=== PATIENT | female | born 1985 ===

== ENCOUNTER 2023-07-07 08:54 | Outpatient (CLI) | payer SELFPAY ==
--- NOTE | ~2023-07-07 | MMUS_ITS ---
EXAMINATION: MM diag agustin implant RT w ayanna, US breast RT complete HISTORY: Tenderness, upper inner right breast TECHNIQUE: Implant displaced MLO, MLO and CC 3-D tomosynthesis images of the right breast were perfor med and synthetic 2-D images were generated. Implant ML, MLO and CC views. CAD analysis was submitted and interpreted. High resolution complete right breast ultrasound examination including all 4 quadra nts and subareolar area was performed. COMPARISON: None BREAST PARENCHYMAL COMPOSITION: The breasts are extremely dense, which lowers the sensitivity of mamm ography. FINDINGS: MAMMOGRAPHIC FINDINGS: Status post right augmentation mammoplasty. There is dense stroma throughout the right breast which may obscure masses, reducing the sensitivity of the mammographic examination. Complete right breast ultrasound examination was performed. No suspicious mass, architectural distortion, malignant calcification, skin thickening or retraction is evident mammographically. ULTRASOUND: No suspicious mass or shadowing, cyst or other significant sonographic abnormalities noted. Right breast implant is noted. IMPRESSION: 1. No mammographic or sonographic evidence of malignancy 2. Routine annual mammographic screening is recommended BI-RADS Category 1: Negative Reviewed, dictated and finalized at location A. IMPRESSION: 1. No mammographic or sonographic evidence of malignancy 2. Routine annual mammographic screening is recommended BI-RADS Category 1: Negative
== END 2023-07-07 08:55 ==
PROVIDERS: Visit Provider Nurse Practitioner
DX: N64.4 Mastodynia (principal)
CPT/HCPCS: 76641; 77061; 77065; G0279